=== PATIENT | female | born 1980 | race Caucasian/White ===

== ENCOUNTER 2023-11-19 20:45 | Emergency (ER) | payer SELFPAY ==
[2023-11-19 21:27] VITALS: BP 144/89
[2023-11-19 21:28] LABS: % Basophils 0.6 % (0-2); % Eosinophils 1.3 % (0-6); % Immature Granulocytes 0.4 % (0-0.5); % Lymphocytes 47.7 % (20.5-51.1); % Monocytes 4.8 % (1.7-9.3); % Neutrophils 45.2 % (42.2-75.2); Absolute Basophils 0.1 10^3/uL (0-0.2); Absolute Eosinophils 0.1 10^3/uL (0-0.7); Absolute Lymphocytes 3.7 10^3/uL (1.2-3.4); Absolute Monocytes 0.4 10^3/uL (0.1-0.6); Absolute Neutrophils 3.5 10^3/uL (1.4-6.5); Hematocrit 48.1 % (37.0-47.0); Hemoglobin 16.7 g/dL (12.0-16.0); Mean Corp Hgb Conc. 34.7 g/dL (33.0-37.0); Mean Corpuscular Hgb 31.6 pg (27.0-31.0); Mean Corpuscular Volume 91.1 fL (81.0-99.0); Mean Platelet Volume 9.2 fL (7.4-10.4); Nucleated Red Blood Cells % 0 %; Platelet Count 357 10^3/uL (130-400); Red Blood Cell Count 5.28 10^6/uL (4.20-5.40); Red Cell Dist. Width 12.7 % (11.5-14.5); White Blood Cell Count 7.7 10^3/uL (4.8-10.8)
[2023-11-19 21:44] LABS: ALT (SGPT) 33 U/L (0-35); AST (SGOT) 53 U/L (14-36); Albumin 5.5 g/dl (3.5-5.0); Alcohol 289 mg/dl; Alkaline Phosphatase 78 U/L (38-126); Blood Urea Nitrogen 9 mg/dl (7-17); Calcium 9.6 mg/dl (8.4-10.2); Carbon Dioxide 26 mmol/L (22-30); Chloride 103 mmol/L (98-107); Glucose 102 mg/dl (70-99); Sodium 147 mmol/L (135-145); Total Bilirubin 0.6 mg/dl (0.2-1.3); Total Protein 8.9 g/dl (6.3-8.2); eGFR > 60.00
[2023-11-19 21:50] LABS: Amphetamines Negative (Negative); Barbiturates Negative (Negative); Benzodiazepines Negative (Negative); Buprenorphine Negative (Negative); Cocaine Negative (Negative); Marijuana Negative (Negative); Methadone Negative (Negative); Methamphetamines Negative (Negative); Opiates Negative (Negative); Phencyclidine Negative (Negative); Tricyclic Antidepressants Negative (Negative)
[2023-11-19] MEDS: MOTRIN 600 MG PO (22:26)
--- NOTE | 2023-11-19 22:46 | ED.GENMED ---
History of Present Illness
General
Chief Complaint: Crisis Evaluation
Time Seen by Provider: 11/19/23 20:51
History of Present Illness
History of Present Illness:
Patient is a 42-year-old woman who is otherwise healthy presenting to the emergency department for crisis evaluation. Per medics patient was found in the [place] after attempting to hang herself from a tree. She was found with a rope and ligature
hendrix around her neck. Patient does admit to be intoxicated. She denies any drug use. She states that she only takes lorazepam to help her sleep. however patient is not forthcoming with any of the information the EMS provided. Police were on
scene and did initiate a 302. Patient denies any history of suicidal thoughts or suicide attempts. States that she is never been in a psychiatric facility before. 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
illnesses. At this time patient does not have any medical complaints.
Phy Exam
Physical Exam
Physical Exam:
GENERAL: in no acute distress, slight small bowel
HEENT: normocephalic, extraocular movements intact, moist oral mucosa
NECK: normal inspection, superficial abrasions on the sides of her neck bilaterally
RESPIRATORY: no respiratory distress, clear to auscultation bilaterally
CARDIOVASCULAR: regular rate and rhythm
ABDOMEN/: soft, non-distended, non-tender to palpation, no rebound or guarding
EXTREMITIES: non-tender, no edema/swelling
NEUROLOGIC: awake and alert, moves all extremities
SKIN: warm
Course
Orders/Labs/Results
Orders:
Orders
11/19/23 21:20
Crisis Consult Urgent
Reason for Consult: suicide attempt
11/19/23 21:21
Alcohol Urgent
Complete Blood Count/With Diff Urgent
Comprehensive Metabolic Panel Urgent
Urine Drug Abuse Screen Urgent
Date Specimen was Collected: 11/19/23
Time Specimen was Collected: 21:20
11/19/23 21:37
HCG, Urine Qualitative Screen Urgent
Test Result ONCE
11/19/23 22:22
Acetaminophen [Tylenol] 650 mg .ROUTE .STK-MED ONE
11/19/23 22:23
Acetaminophen [Tylenol] 650 mg PO NOW STA
11/19/23 22:26
Ibuprofen [Motrin] 600 mg .ROUTE .STK-MED ONE
Ibuprofen [Motrin] 600 mg PO NOW STA
11/19/23 22:30
CT Neck Angio W/wo Iv Contrast Urgent
Comment:
Reason For Exam: strangulation
11/19/23 22:40
Add On- LAB Stat
Tests Added?: urine, HCG qual
Abnormal Lab Results
11/19/23
21:21
Hgb 16.7 H g/dL
(12.0-16.0)
Hct 48.1 H %
(37.0-47.0)
MCH 31.6 H pg
(27.0-31.0)
Absolute Lymphs (auto) 3.7 H 10^3/uL
(1.2-3.4)
Sodium 147 H mmol/L
(135-145)
Glucose 102 H mg/dl
(70-99)
AST 53 H U/L
(14-36)
Total Protein 8.9 H g/dl
(6.3-8.2)
Albumin 5.5 H g/dl
(3.5-5.0)
11/19/23 21:21
11/19/23 21:21
Vital Signs
Initial and Last Documented VS:
Initial Vital Signs
Temp Pulse Resp BP Pulse Ox
98.3 F 98 20 144/89 99
11/19/23 21:27 11/19/23 21:27 11/19/23 21:27 11/19/23 21:27 11/19/23 21:27
Last Documented Vital Signs
Temp Pulse Resp BP Pulse Ox
98.3 F 98 20 144/89 99
11/19/23 21:27 11/19/23 21:27 11/19/23 21:27 11/19/23 21:27 11/19/23 21:27
MDM/Problems Addressed
Differential Diagnosis Includes:
Patient is a 42-year-old woman who is otherwise healthy presenting to the emergency department for crisis evaluation. Per EMS it sounds like there was a suicide attempt however patient is not forthcoming with any of the information and does not
elaborate. I did review the 302 that was initiated that does state that she was found with a rope around her neck outside by the tree and per patient's mother this was a suicide attempt. Given the concern for possible strangulation will obtain CTA
neck. Blood work obtained prior to evaluation does show an alcohol level of 289. Will have crisis evaluate patient. Patient will need placement given this attempt.
*Critical Care Note
Total Time (30-74mins, 75-104mins- exclusive of procedures): Not Applicable
Update Note
Update Note:
Crisis to talk to patient. They will have telepsych get involved as patient is not forthcoming.
Patient signed out to oncoming attending pending CTA neck as well as telepsych evaluation. Anticipate transfer to psych facility.
ED Attending Note
-
Portions of this chart may have been created with voice recognition software.� Occasional wrong word or��sound alike� substitutions may have occurred due to the inherent limitations of voice recognition software.
Discharge Plan
Departure
Patient Disposition: Psych Facility
Date of Disposition: 11/19/23
Time of Disposition: 22:45
Discharge Problem:
Suicidal behavior
Referrals:
NONE,* [Family Provider] -
Interventions
Interventions:
*Risk Screen - Suicide Last Done: 11/19/23 21:28
*General Assessment Last Done: 11/19/23 21:28
*Neglect/Abuse Screening Last Done: 11/19/23 21:28
*ED COVID-19 Vaccine History Last Done: 11/19/23 21:27
ED-Psychological Assessment Last Done: 11/19/23 21:32
Discharge Date and Time
Print Language: TURKMEN
[2023-11-19 23:00] LABS: HCG, Urine Qualitative Screen Negative
--- NOTE | 2023-11-20 09:32 | EDRN ---
Pt awake and alert, breakfast tray given to patient and gatorade that patient ordered the on prior shift. Pt offered no complaints and aware that she is currently waiting on psychiatry for evaluation. Repeat ETOH sent to lab.
[2023-11-20 10:06] LABS: Alcohol None Detected
--- NOTE | 2023-11-20 10:41 | EDRN ---
Pt provided with feminine products and towels to clean herself. Pt ambulated to the BR with steady gait.
This RN also spoke with crisis, 302 upheld, bed search in progress.
--- NOTE | 2023-11-20 10:51 | W.PN.UPDATE ---
Update Note
Progress Note Update
Pt seen, reviewed with Crisis staff, who report pt was seen overnight by Tele-psych, who upheld the 302 filed by police. Per ED record/medics, patient was found in the [place] after attempting to hang herself from a tree, with a rope and ligature
hendrix around her neck. Pt was intoxicated with alcohol, level in ED 289. Pt states she got a DUI charge last , has been saying she needs to stop drinking. Today, pt states she feels 'embarrassed', admits she tried to hang herself, denies
active SI this morning. Pt is alert, oriented, calm, cooperative, somewhat guarded. She states a lot of things piled up, causing her to feel stressed/overwhelmed. She has 2 children age 5 and 9, has them during the week; they are with their
father on weekends. Affect is dysphoric, mood depressed. No signs of psychosis, no agitation.
Pt denies hx of prior suicide attempt, denies previous psychiatric treatment. Pt states her PCP prescribed Prozac during her marital separation, but she never took it
Pt reports she is prescribed Ativan at night as needed for insomnia, PDMP shows Ativan 0.5 mg, last filled 08/17/23
Imp: Depressive d/o, R/o MDD, on 302 by police for hanging attempt
Alcohol use, unspecified
Rec: Inpatient psych placement on 302, preferably in [facility], where the behavior occurred and 302 was filed
Ativan prn for anxiety. will follow
--- NOTE | 2023-11-20 10:58 | ED.CRISIS ---
ED Crisis Note
ED Crisis Note
Subjective:
Patient cooperative, no longer intoxicated through 2 apparently has been upheld
Patient does have some left-sided rib pain I suggested that we check a chest x-ray she declined
Objective:
Suicidal attempt by hanging intoxication
Assessment/Plan:
302 upheld
[2023-11-20] MEDS: ATIVAN 1 MG PO (13:43)
[2023-11-20 13:44] VITALS: BP 130/79
[2023-11-20 13:46] VITALS: BMI 26.6
== END 2023-11-20 15:00 ==
LOC: EMR 20:45
PROVIDERS: Student in an Organized Health Care Education/Training Program; CONSULT PHYSICIAN Psychiatry & Neurology Psychiatry; EMERGENCY PHYSICIAN Emergency Medicine
DX: T14.91XA Suicide attempt, initial encounter (principal); S10.91XA Abrasion of unspecified part of neck, initial encounter; F10.129 Alcohol abuse with intoxication, unspecified; Y90.8 Blood alcohol level of 240 mg/100 ml or more; X83.8XXA Intentional self-harm by other specified means, initial encounter; Y92.821 Forest as the place of occurrence of the external cause; F32.A Depression, unspecified
CPT/HCPCS: 99285; 70498; 80053; 80306; 81025; 82077; 85025; Q9967